=== PATIENT | male | born 1995 | race African-American/Black ===

== ENCOUNTER 2018-05-10 16:54 | Emergency (ER) | payer MEDICAID, SELFPAY ==
--- NOTE | 2018-05-10 17:35 | RAD ---
RIGHT HAND THREE VIEWS: 05/10/18 HISTORY: Right hand injury. FINDINGS: Comminuted oblique fracture of the fifth metacarpal neck is present with significant AP posterior and medial angulation. Minimal displacement. No other acute fracture or dislocation are apparent. IMPRESSION: Boxer's fracture right fifth metacarpal. POS: [facility]
== END 2018-05-10 18:00 | disposition home or self-care (01) ==
LOC: ERS 16:54
DX: S62.336A Displaced fracture of neck of fifth metacarpal bone, right hand, initial encounter for closed fracture (principal); Z79.899 Other long term (current) drug therapy; W22.8XXA Striking against or struck by other objects, initial encounter
CPT/HCPCS: 29125

== ENCOUNTER 2019-04-15 14:53 | Emergency (ER) | payer SELFPAY ==
--- NOTE | 2019-04-15 15:21 | RAD ---
XR Knee Rt 4 View STANDARD: 04/15/2019 2:56 PM CLINICAL INDICATION: Injury COMPARISON: None. FINDINGS: Fracture:No fracture. Arthropathy:None of significance. Mild joint capsular distention. IMPRESSION: 1. No acute osseous abnormality. 2. Mild joint capsular distention.
== END 2019-04-15 16:20 | disposition short-term general hospital (02) ==
LOC: ERS 14:53
DX: S83.91XA Sprain of unspecified site of right knee, initial encounter (principal); V80.919A Animal-rider injured in unspecified transport accident, initial encounter

== ENCOUNTER 2021-10-20 11:35 | Emergency (ER) | payer SELFPAY ==
[2021-10-20] MEDS ORDERED: Ondansetron ODT 4 MG TAB ONE (12:03)
== END 2021-10-20 13:16 | disposition home or self-care (01) ==
LOC: ERS 11:35
DX: R11.2 Nausea with vomiting, unspecified (principal)
CPT/HCPCS: 99283; Q0162